=== PATIENT | female | born 1975 | race Caucasian/White ===

== ENCOUNTER 2018-03-13 14:16 | Emergency (ER) | payer SELFPAY ==
[~2018-03-13] VITALS: Ht 154.9 cm; Wt 81.7 kg
[2018-03-13] MEDS ORDERED: LITHIUM CARBON300 M3 PO (14:29)
[2018-03-13] MEDS ORDERED: WELLBUTRIN SR150 MG PO (14:29)
[2018-03-13] MEDS ORDERED: LITHIUM CARBON600 MG PO (14:29)
[2018-03-13] MEDS ORDERED: ABILIFY10 MG PO (14:29)
[2018-03-13] MEDS ORDERED: WELCHOL 625 MG625 M1 PO (14:30)
[2018-03-13] MEDS ORDERED: FLORAJEN3 CAPS460 MG PO (14:30)
[2018-03-13] MEDS ORDERED: NEURONTIN600 MG PO (14:30)
[2018-03-13] MEDS ORDERED: ZALEPLON 10 MG10 M1 PO (14:31)
[2018-03-13] MEDS ORDERED: MULTIVITAMIN (14:31)
[2018-03-13] MEDS ORDERED: TUMS PO (14:31)
[2018-03-13] MEDS ORDERED: VITAMIN D3 (14:31)
[2018-03-13] MEDS ORDERED: POTASSIUM (14:31)
[2018-03-13 15:02] LABS: URINE BILIRUBIN NEGATIVE (Negative); URINE BLOOD TRACE (Negative); URINE CLARITY SL CLOUDY; URINE COLOR YELLOW; URINE GLUCOSE-RANDOM NEGATIVE (Negative); URINE KETONES NEGATIVE (Negative); URINE LEUKOCYTES-REFLEX NEGATIVE (Negative); URINE NITRITE-REFLEX NEGATIVE (Negative); URINE PROTEIN NEGATIVE (Negative); URINE SPECIFIC GRAVITY >= 1.030 (1.005-1.030); URINE UROBILINOGEN 0.2 E.U./dl (0.2-1.0)
[2018-03-13 15:09] LABS: AMORPHOUS URATES Few /LPF (None Seen); BACTERIA-REFLEX 1-9 Few /HPF (None Seen); CASTS None Seen /LPF (None Seen); MUCUS >6 Heavy strn/LPF (None Seen); SQUAMOUS >10 Many /LPF (0-3); URINE RBC 0-2 Rare /HPF (0-2); URINE WBC-REFLEX 0-5 Rare /HPF (0-5)
[2018-03-13] MEDS ORDERED: FLAGYL500 MG PO (16:00)
[2018-03-13 16:10] VITALS: BP 149/98
== END 2018-03-13 16:12 | disposition home or self-care (01) ==
LOC: M.ERS 14:16
PROVIDERS: Nurse Practitioner Family
DX: N76.0 Acute vaginitis (principal); B96.89 Other specified bacterial agents as the cause of diseases classified elsewhere; I10 Essential (primary) hypertension; E78.00 Pure hypercholesterolemia, unspecified; Z88.1 Allergy status to other antibiotic agents; Z90.721 Acquired absence of ovaries, unilateral; Z88.8 Allergy status to other drugs, medicaments and biological substances